=== PATIENT | female | born 1990 | race American Indian/Alaskan Native ===

== ENCOUNTER 2019-04-29 13:30 | Emergency (ER) | payer MEDICAID ==
[2019-04-29 13:41] VITALS: BP 123/78
--- NOTE | 2019-04-29 14:32 | XRay Report ---
LEFT FINGER 3 VIEWS INDICATION / CLINICAL INFORMATION: trauma, pain COMPARISON: None available. FINDINGS: BONES / JOINT(S): No acute fracture or subluxation. No significant arthritis. SOFT TISSUES: No significant abnormality. ADDITIONAL FINDINGS: None. Signer Name: Villa Widl MD Signed: 04/29/2019 2:28 PM Workstation Name: [id number]
--- NOTE | 2019-04-29 15:36 | Emergency Department Report ---
HPI - General Chief Complaint: Extremity Injury, Upper Time Seen by Provider: 04/29/19 14:53 - HPI HPI: 28-year-old female presents to the emergency department with complaint of some pain and swelling to the left index finger after she accidentally hit it on a door last night. She has some decreased range of motion secondary to the pain and swelling. She has not taken anything for her symptoms prior to presentation. She is right-hand dominant. ED Past Medical Hx - Past Medical History Previous Medical History?: No - Surgical History Additional Surgical History: tubal ligation - Social History Smoking Status: Never Smoker Substance Use Type: None - Medications Home Medications: Home Medications Medication Instructions Recorded Confirmed Last Taken Type Naproxen [Naprosyn] 500 mg PO TID PRN #12 tablet 03/27/18 Unknown Rx traMADoL [Ultram 50 MG tab] 50 mg PO Q6HR PRN #8 tablet 03/27/18 Unknown Rx Ibuprofen [Motrin 600 MG tab] 600 mg PO Q8H PRN #20 tablet 04/29/19 Unknown Rx ED Review of Systems ROS: Stated complaint: LEFT INDEX FINGER PAIN Other details as noted in HPI Comment: All other systems reviewed and negative Constitutional: denies: chills, fever Musculoskeletal: joint swelling, arthralgia Skin: denies: rash, lesions Neurological: denies: numbness, paresthesias Physical Exam - Physical Exam Vital Signs: Vital Signs 04/29/19 13:39 Temperature 98.1 F Pulse Rate 92 H Respiratory 16 Rate Blood Pressure 123/78 O2 Sat by Pulse 99 Oximetry Physical Exam: GENERAL: The patient is well-developed well-nourished. HENT: Normocephalic. Atraumatic. Patient has moist mucous membranes. EYES: Extraocular motions are intact. NECK: Supple. Trachea is midline. SKIN: There is some mild nonpitting swelling and mild ecchymosis to the left index finger. NEURO: The patient is awake, alert, and oriented. The patient is cooperative. The patient has no focal neurologic deficits. The patient has normal speech. MUSCULOSKELETAL: There is tenderness to palpation along the length of the left index finger but no obvious deformity. Decreased range of motion secondary to pain and mild swelling. Capillary refill less than 2 seconds. ED Course Vital Signs 04/29/19 13:39 Temperature 98.1 F Pulse Rate 92 H Respiratory 16 Rate Blood Pressure 123/78 O2 Sat by Pulse 99 Oximetry ED Medical Decision Making - Radiology Data Radiology results: image reviewed interpreted by me: X-ray of the left finger/hand does not show any fracture, dislocation or any acute process. - Medical Decision Making Patient presents with some pain and swelling to the left index finger after accidentally hitting it on a door or door frame last night. There is mild swelling, ecchymosis and there is tenderness to palpation. X-ray does not show any fracture or dislocation. Placed in a finger splint and given referral for orthopedist. - Differential Diagnosis fracture, dislocation, contusion Critical Care Time: No Critical care attestation.: If time is entered above; I have spent that time in minutes in the direct care of this critically ill patient, excluding procedure time. ED Disposition Clinical Impression: Finger pain, left Contusion of left index finger Qualifiers: Encounter type: initial encounter Damage to nail status: without damage Qualified Code(s): S60.022A - Contusion of left index finger without damage to nail, initial encounter Disposition: TO HOME OR SELFCARE Is pt being admited?: No Condition: Stable Instructions: Contusion in Adults (ED), Finger Sprain (ED) Additional Instructions: Please follow up with a primary care physician in the next few days. I'm giving you a referral for a local orthopedist, Dr. Mauro, to follow up regarding her finger pain. Return to the emergency Department with any worsening of your symptoms or any acute distress. Prescriptions: Ibuprofen [Motrin 600 MG tab] 600 mg PO Q8H PRN #20 tablet PRN Reason: Pain Referrals: AKBAR MEEKS MD [Primary Care Provider] - 3-5 Days DANIEL MAURO MD [Staff Physician] - 3-5 Days Time of Disposition: 15:36
== END 2019-04-29 16:28 | disposition home or self-care (01) ==
LOC: ED 13:30
DX: S60.022A Contusion of left index finger without damage to nail, initial encounter (principal); Z98.51 Tubal ligation status; W22.8XXA Striking against or struck by other objects, initial encounter; Y93.89 Activity, other specified; Y92.89 Other specified places as the place of occurrence of the external cause; Y99.8 Other external cause status

== ENCOUNTER 2020-12-04 18:28 | Emergency (ER) | payer MEDICAID | END 2020-12-05 03:27 | disposition left against medical advice (07) | LOC: ED 18:28 | DX: S09.90XA Unspecified injury of head, initial encounter (principal); Z53.21 Procedure and treatment not carried out due to patient leaving prior to being seen by health care provider ==